=== PATIENT | female | born 1995 | race Caucasian/White ===

== ENCOUNTER 2016-11-10 12:48 | Emergency (ER) | payer BC ==
[2016-11-10 12:55] VITALS: BP 142/90; PULSE 72; BMI 24.1
--- NOTE | 2016-11-10 13:07 | PDOC ---
History of Present Illness - General Chief Complaint: Pain, Acute Stated Complaint: RIGHT LEG PAIN Time Seen by Provider: 11/10/16 12:49 History Source: Patient Exam Limitations: No Limitations - History of Present Illness Initial Comments: 11/10/16 12:51 The patient is a 21 year old female with history of PCOS on daily OCP who presents to the ED complaining of right calf pain for approximately 1 hour. The patient reports her calf pain is sore, mild, worse with palpation. She also notes some mild right lower extremity swelling. No left lower extremity. On evaluation the patient reports mild palpitations. PMH: PCOS PSH: denies ALL: NKDA Meds: OCPs Social: GENERAL/CONSTITUTIONAL: No: fever, chills, weakness, loss of appetite. CARDIOVASCULAR: No: chest pain RESPIRATORY: No: shortness of breath MUSCULOSKELETAL: Yes: calf pain No: back pain, neck pain, joint pain SKIN: Yes: erythema GENERAL: The patient is in no acute distress. EXTREMITIES: (+) Right calf pain and swelling, Normal range of motion, No erythema MUSCULOSKELETAL: see above SKIN: see above 11/13/16 08:35 Past History - Past Medical History Allergies/Adverse Reactions: Allergies Allergy/AdvReac Type Severity Reaction Status Date / Time No Known Allergies Allergy Verified 11/10/16 12:49 Home Medications: Ambulatory Orders Albuterol Sulfate Inhaler - [Ventolin Hfa Inhaler -] 1 - 2 inh PO PRN PRN Norgestimate-Ethinyl Estradiol [[id number] Tablet] 1 each PO DAILY ED Treatment Course - RADIOLOGY Radiology Studies Ordered: Category Date Time Status DUPLEX VASCUL US-1 LEG [US] Stat Ultrasound 11/10/16 12:51 Ordered Medical Decision Making - Medical Decision Making 11/10/16 13:07 Will do Duplex of the lower extremity Will re assess Duplex negative Will discharge *DC/Admit/Observation/Transfer Diagnosis at time of Disposition: Leg swelling - Discharge Dispostion Disposition: HOME Condition at time of disposition: Stable Admit: No - Patient Instructions Printed Discharge Instructions: DI for Leg Pain Additional Instructions: Thanks for coming to the ER today Please elevate your leg to prevent swelling Return to the ER for any other concerns or complaints or just to stop by - Post Discharge Activity Work/School Note: Back to Work
== END 2016-11-10 13:40 | disposition home or self-care (01) ==
LOC: FER 12:48
DX: R60.0 Localized edema (principal)
CPT/HCPCS: 93971-TC; 99282-25